=== PATIENT | female | born 1975 | race Caucasian/White ===

== ENCOUNTER 2017-01-16 17:40 | Emergency (ER) | payer BC, OTHER ==
--- NOTE | 2017-01-16 17:51 | EDPHY ---
H & P HPI/ROS: HPI CHIEF COMPLAINT: Sore throat, cough, congestion HISTORY OF PRESENT ILLNESS: This patient very pleasant 41-year-old female she presents emergency room sore throat cough and congestion. Nonproductive cough. She does have nasal congestion. Sore throat. This started Sunday. Her main complaint is sore throat. No fever. Denies chest pain or shortness of breath. She does have anterior sinus pain as well. Sinus congestion. Past Medical History: Denies any significant medical history Past Surgical History: Denies recent surgical history Social History: Denies daily use of drugs alcohol tobacco products. Family History: Noncontributory ROS REVIEW OF SYSTEMS: A comprehensive 10 point review of systems is otherwise negative aside from elements mentioned in the history of present illness. Exam Constitutional appears well nontoxic, triage nursing summary reviewed, vital signs reviewed, awake/alert. Eyes normal conjunctivae and sclera, EOMI, PERRLA. HENT normal inspection, atraumatic, moist mucus membranes, no epistaxis, neck supple/ no meningismus, no raccoon eyes. Nasal turbinates are inflamed bilaterally, mild tenderness palpation over the maxillary sinuses, posterior pharynx erythematous but any significant exudate or swelling. Uvula midline. No signs of Joseph's. No change in voice. No hot potato voice. No drooling. Able swallow appropriately. No stridor. Respiratory clear to auscultation bilaterally, normal breath sounds, no respiratory distress, no wheezing. Cardiovascular rate normal, regular rhythm, no murmur, no edema, distal pulses normal. Gastrointestinal soft, non-tender, no rebound, no guarding, normal bowel sounds, no distension, no pulsatile mass. Genitourinary no CVA tenderness. Musculoskeletal no midline vertebral tenderness, full range of motion, no calf swelling, no tenderness of extremities, no meningismus, good pulses, neurovascularly intact. Skin pink, warm, & dry, no rash, skin atraumatic. Neurologic awake, alert and oriented x 3, AAOx3, moves all 4 extremities equally, motor intact, sensory intact, CN II-XII intact, normal cerebellar, normal vision, normal speech. Psychiatric normal mood/affect. Heme/Lymph/Immune no lymphadenopathy. Differential Diagnosis: Includes but is not limited to in a particular order, viral syndrome, upper respiratory tract infection, viral pharyngitis, strep pharyngitis, sinusitis Medical Decision Making: Plan for this patient rapid strep test. Re-evaluation: 180: Will treat for acute pharyngitis as well as sinusitis. Azithromycin. Decadron. Recommend Mucinex D congestion Tylenol Motrin alternating. Stay well -hydrated drink lots of fluids. Understands return emergency room she develops worsening symptoms questions concerns she appears well nontoxic Source: Patient Constitutional: Initial Vital Signs Temperature (C) 36.8 C 01/16/17 17:55 Heart Rate 52 L 01/16/17 17:55 Respiratory Rate 18 01/16/17 17:55 Blood Pressure 128/79 H 01/16/17 17:55 O2 Sat (%) 98 01/16/17 17:55 O2 Delivery Mode Room Air Allergies/Adverse Reactions: egg [eggs] Allergy (Verified 01/16/17 17:57) penicillin G Allergy (Verified 01/16/17 17:57) Home Medications: Medication Instructions Recorded AZITHROMYCIN [Z-PACK] 250 mg PO DAILY #6 tab 01/16/17 Dexamethasone [Decadron 4 MG (*)] 4 mg PO DAILY #4 tab 01/16/17 Ibuprofen [Motrin (*)] 800 mg PO Q6-8PRN #7 tab 01/16/17 guaiFENesin [Guaifenesin ER] 600 mg PO BID #14 tab.er.12h 01/16/17 Departure - Departure Disposition: Home, Routine, Self-Care Clinical Impression: Pharyngitis Qualifiers: Pharyngitis/tonsillitis etiology: unspecified etiology Qualified Code(s): J02.9 - Acute pharyngitis, unspecified Sinusitis Qualifiers: Sinusitis location: maxillary Chronicity: acute Recurrence: non-recurrent Qualified Code(s): J01.00 - Acute maxillary sinusitis, unspecified Condition: Good Instructions: Viral Syndrome (ED), Upper Respiratory Infection (ED) Additional Instructions: 1. Drink lots of fluids stay well-hydrated. 2. Alternate Tylenol Motrin for pain control. 3. Return emergency room if you have worsening symptoms. Referrals: NONE *PRIMARY CARE P,. [Primary Care Provider] - As per Instructions Prescriptions: AZITHROMYCIN [Z-PACK] 250 mg PO DAILY #6 tab Dexamethasone [Decadron 4 MG (*)] 4 mg PO DAILY #4 tab guaiFENesin [Guaifenesin ER] 600 mg PO BID #14 tab.er.12h Ibuprofen [Motrin (*)] 800 mg PO Q6-8PRN #7 tab
[2017-01-16 17:57] VITALS: BP 128/79; PULSE 52; RESP 18; TEMP 98.2; O2SAT 98
== END 2017-01-16 18:17 | disposition home or self-care (01) ==
LOC: CED 17:40
DX: J01.00 Acute maxillary sinusitis, unspecified (principal)
CPT/HCPCS: 87880-PO

== ENCOUNTER → 2018-06-05 | Outpatient (CLI) | payer OTHER ==
[~2018-06-05] MED LIST: GADOBUTROL 7.5 ML VIAL IVP ONE; IOPAMIDOL (ISOVUE 370) 100 ML BTL IV ONE; LIDOCAINE 1% 300 MG/30 ML SDV ONE
== END ==
LOC: FIMAGING 10:05
PROVIDERS: ATTEND Physician Assistant
PROC: 3E0U3KZ Introduction of Other Diagnostic Substance into Joints, Percutaneous Approach (ICD-10-PCS; principal; 2018-06-05)
DX: M25.511 Pain in right shoulder (principal)
CPT/HCPCS: A9585; Q9967